=== PATIENT | male | born 1965 | race Caucasian/White ===

== ENCOUNTER 2022-07-28 02:13 | Emergency (ER) | payer MEDICAID ==
[~2022-07-28] VITALS: Ht 170.2 cm; Wt 66.7 kg
[2022-07-28 02:21] VITALS: BP 154/82
--- NOTE | 2022-07-28 02:26 | NUR ---
TO LOBBY FOLLOWING TRIAGE
[2022-07-28] MEDS ORDERED: LIDOCAINE 1% 500 MG/ 50 ML VIAL INJ ONE (04:05)
[2022-07-28] MEDS ORDERED: LIDOCAINE MPF 1% 5 ML ONE (04:16)
[2022-07-28] MEDS ORDERED: ETHYL CHLORIDE 105 ML SPR TP ONE (04:17)
[2022-07-28] MEDS ORDERED: CEPH-588 PO (04:43)
[2022-07-28] MEDS ORDERED: NAPR-54 PO (04:43)
--- NOTE | 2022-07-28 04:49 | NUR ---
Patient discharged with v/s stable. Written and verbal after care instructions given and explained. Patient alert, oriented and verbalized understanding of instructions. Ambulatory with steady gait. All questions addressed prior to discharge. ID band removed. Patient advised to follow up with PMD. Rx of KEFLEX AND NAPROSYN given. Patient educated on indication of medication including possible reaction and side effects. Opportunity to ask questions provided and answered.
== END 2022-07-28 04:49 | disposition home or self-care (01) ==
LOC: MED 02:13
DX: L02.512 Cutaneous abscess of left hand (principal)
CPT/HCPCS: 10060; 90471; 90715; 99283; J2001